=== PATIENT | male | born 1985 | race Caucasian/White ===

== ENCOUNTER → 2019-01-27 | Outpatient (CLI) | payer OTHER, SELFPAY ==
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
== END | disposition home or self-care (01) ==
LOC: RAD 19:51
DX: M99.01 Segmental and somatic dysfunction of cervical region (principal); M99.03 Segmental and somatic dysfunction of lumbar region; M62.830 Muscle spasm of back
CPT/HCPCS: 72050; 72110; 72170

== ENCOUNTER → 2019-01-28 | Outpatient (CLI) | payer OTHER, SELFPAY ==
[2019-01-28 10:28] LABS: Absolute Lymphocyte Count 1.49 X10^3/ul (0.83-4.51); Absolute Neutrophil Count 2.5 X10^3/uL (2.0-7.7); Basophil# 0.04 X10^3/uL; Basophil% 0.9 % (0-1); Eosinophil# 0.14 X10^3/uL; Hematocrit 42.9 % (40-54); Hemoglobin 14.3 g/dl (13.0-16.5); Lymphocyte # 1.49 X10^3/ul (4.0); Lymphocyte % 32.2 % (19-41); Mean Corp Hgb Conc 33.3 g/gl (32-36); Mean Corpuscular Hgb 28.8 pg (27.0-32.0); Mean Corpuscular Volume 86.5 fL (80-94); Mean Platelet Vol. 8.7 fl (6.2-12.0); Monocyte# 0.48 X10^3/uL; Monocyte% 10.4 % (0-10); Neutrophil # 2.47 X10^3/uL (2.7-7.7); Neutrophil % 53.3 % (47-70); POSITIVE COUNT NO; POSITIVE DIFFERENTIAL NO; POSITIVE MORPHOLOGY NO; Platelet Count 242 K/mm3 (150-450); RBC Distribution Width SD 40.9 fl (35.1-43.9); Red Blood Count 4.96 M/mm3 (4.6-6.2); White Blood Count 4.6 K/mm3 (4.4-11.0)
[2019-01-28 10:51] LABS: Anion Gap 8 (5-15); BUN 14 mg/dL (7-18); BUN/Creat Ratio 13.6 RATIO (10-20); Calcium,Total 9.2 mg/dL (8.5-10.1); Chloride 104 mmol/L (98-107); Cholesterol 193 mg/dL (200); Creatinine, Serum 1.03 mg/dL (0.70-1.30); EST Glomerular Filtration Rate 89 mL/min (>60); Est Glom Filt Rate - Afr Amer 108 mL/min (>60); Glucose 100 mg/dL (74-106); High Density Lipoprotein 29 mg/dL; Potassium 4.5 mmol/L (3.5-5.1); Sodium Level 141 mmol/L (136-145); Triglycerides 148 mg/dL; Very Low Density Lipoprotein 30 mg/dL (5-40)
== END | disposition home or self-care (01) ==
LOC: MFPLAB 09:02
PROVIDERS: Family Provider Family Medicine; PCP Family Medicine; Referring Provider Family Medicine; Visit Provider Family Medicine
DX: Z00.00 Encounter for general adult medical examination without abnormal findings (principal); R55 Syncope and collapse
CPT/HCPCS: 36415; 80048; 80061; 85025

== ENCOUNTER → 2020-06-17 | Outpatient (CLI) | payer SELFPAY | END | disposition home or self-care (01) | PROVIDERS: PCP Family Medicine; Visit Provider Family Medicine | DX: Z20.828 Contact with and (suspected) exposure to other viral communicable diseases (principal) | CPT/HCPCS: 87635; U0003 ==

== ENCOUNTER → 2020-08-17 09:09 | Outpatient (CLI) | payer OTHER, SELFPAY ==
[2020-08-17 13:24] LABS: Cholesterol 213 mg/dL (200); High Density Lipoprotein 54 mg/dL; Triglycerides 77 mg/dL; Very Low Density Lipoprotein 15 mg/dL (5-40)
== END ==
PROVIDERS: PCP Family Medicine; Visit Provider Family Medicine
DX: Z00.00 Encounter for general adult medical examination without abnormal findings (principal)
CPT/HCPCS: 36415; 80061

== ENCOUNTER → 2023-04-12 | Outpatient (CLI) | payer BC, SELFPAY ==
[2023-04-12 07:45] LABS: Absolute Lymphocyte Count 2.01 X10^3/uL (0.83-4.51); Basophil# 0.05 X10^3/uL; Basophil% 0.9 % (0-1); Eosinophil# 0.15 X10^3/uL; Eosinophils% 2.7 % (0-5); Hematocrit 45.2 % (40-54); Hemoglobin 14.6 g/dL (13.0-16.5); Lymphocyte # 2.01 X10^3/ul (0.83-4.51); Mean Corp Hgb Conc 32.3 g/dL (32-36); Mean Corpuscular Hgb 29.1 pg (27.0-32.0); Mean Platelet Vol. 9.2 fl (6.2-12.0); Monocyte# 0.36 X10^3/uL; Monocyte% 6.4 % (0-10); NRBC Flagged by Analyzer 0 % (0-5); Neutrophil # 3.01 X10^3/uL (2.7-7.7); Neutrophil % 53.8 % (47-70); Platelet Count 294 K/mm3 (150-450); RBC Distribution Width CV 12.8 % (11.6-14.6); RBC Distribution Width SD 42.5 fl (35.1-43.9); Red Blood Count 5.02 M/mm3 (4.6-6.2); White Blood Count 5.6 K/mm3 (4.4-11.0)
[2023-04-12 08:14] LABS: ALB/GLOB Ratio 1.2 RATIO (0.9-2.4); AST(SGOT) 18 U/L (15-37); Alanine Aminotransfer ALT/SGPT 31 U/L (16-61); Albumin, Serum 4.1 g/dL (3.2-5.0); Alkaline Phosphatase 48 U/L (45-117); Anion Gap 4 (5-15); BUN 20 mg/dL (7-18); BUN/Creat Ratio 19.6 RATIO (10-20); Chloride 105 mmol/L (98-107); Cholesterol 221 mg/dL (200); Creatinine, Serum 1.02 mg/dL (0.70-1.30); EST Glomerular Filtration Rate 88 mL/min (>60); Est Glom Filt Rate - Afr Amer 107 mL/min (>60); Ferritin 184 ng/mL (26-388); Globulin 3.5 g/dL (2.2-4.2); Glucose 83 mg/dL (74-106); High Density Lipoprotein 52 mg/dL; Iron 106 ug/dL (65-175); Potassium 3.9 mmol/L (3.5-5.1); Protein, Total 7.6 g/dL (6.4-8.2); Sodium Level 139 mmol/L (136-145); Triglycerides 61 mg/dL; Very Low Density Lipoprotein 12 mg/dL (5-40); Vitamin B12 600 pg/mL (211-911); Vitamin D,25 Hydroxy 38.9 ng/mL
[2023-04-12 08:17] LABS: Hemoglobin A1c 5.2 % (3.8-5.6)
== END | disposition home or self-care (01) ==
LOC: LAB 06:35
PROVIDERS: PCP Family Medicine; Referring Provider Nurse Practitioner Family; Visit Provider Nurse Practitioner Family
DX: Z00.01 Encounter for general adult medical examination with abnormal findings (principal); R19.7 Diarrhea, unspecified; Z83.3 Family history of diabetes mellitus; R53.83 Other fatigue
CPT/HCPCS: 36415; 80053; 80061; 82306; 82607; 82728; 83036; 83540; 83630; 85025; 87506

== ENCOUNTER → 2023-12-03 | Outpatient (CLI) | payer BC, SELFPAY | END | disposition home or self-care (01) | LOC: BFHLAB 16:22 → LABSPEC 16:23 | PROVIDERS: PCP Nurse Practitioner Family; Visit Provider Nurse Practitioner Family | DX: Z20.9 Contact with and (suspected) exposure to unspecified communicable disease (principal); N41.9 Inflammatory disease of prostate, unspecified | CPT/HCPCS: 87086; 87491; 87591 ==

== ENCOUNTER → 2023-12-11 | Outpatient (CLI) | payer BC, SELFPAY ==
[2023-12-11 12:20] LABS: Erythrocyte Sedimentation Rate 2 mm/hr (0-20)
[2023-12-11 12:26] LABS: Absolute Lymphocyte Count 1.52 X10^3/uL (0.83-4.51); Absolute Neutrophil Count 2.6 X10^3/uL (2.0-7.7); Basophil# 0.04 X10^3/uL; Basophil% 0.9 % (0-1); Eosinophil# 0.12 X10^3/uL; Eosinophils% 2.6 % (0-5); Hematocrit 43.5 % (40-54); Hemoglobin 13.8 g/dL (13.0-16.5); Lymphocyte # 1.52 X10^3/ul (0.83-4.51); Mean Corp Hgb Conc 31.7 g/dL (32-36); Mean Corpuscular Hgb 29.1 pg (27.0-32.0); Mean Corpuscular Volume 91.8 fL (80-94); Mean Platelet Vol. 9.4 fl (6.2-12.0); Monocyte# 0.32 X10^3/uL; NRBC Flagged by Analyzer 0 % (0-5); Neutrophil # 2.59 X10^3/uL (2.7-7.7); Neutrophil % 56.3 % (47-70); Platelet Count 286 K/mm3 (150-450); RBC Distribution Width CV 13.4 % (11.6-14.6); RBC Distribution Width SD 45.5 fl (35.1-43.9); Red Blood Count 4.74 M/mm3 (4.6-6.2); White Blood Count 4.6 K/mm3 (4.4-11.0)
[2023-12-11 12:51] LABS: ALB/GLOB Ratio 1.2 RATIO (0.9-2.4); AST(SGOT) 24 U/L (15-37); Alanine Aminotransfer ALT/SGPT 27 U/L (16-61); Albumin, Serum 4.2 g/dL (3.2-5.0); Alkaline Phosphatase 44 U/L (45-117); Anion Gap 3 (5-15); BUN 21 mg/dL (7-18); BUN/Creat Ratio 18.6 RATIO (10-20); CRP < 2.90 mg/L (0.0-3.0); Calcium,Total 9.2 mg/dL (8.5-10.1); Chloride 108 mmol/L (98-107); Creatinine, Serum 1.13 mg/dL (0.70-1.30); EST Glomerular Filtration Rate 78 mL/min (>60); Est Glom Filt Rate - Afr Amer 94 mL/min (>60); Globulin 3.4 g/dL (2.2-4.2); Glucose 80 mg/dL (74-106); Potassium 4.2 mmol/L (3.5-5.1); Protein, Total 7.6 g/dL (6.4-8.2); Sodium Level 139 mmol/L (136-145)
== END | disposition home or self-care (01) ==
LOC: BFHLAB 08:38
PROVIDERS: PCP Nurse Practitioner Family; Referring Provider Nurse Practitioner Family; Visit Provider Nurse Practitioner Family
DX: R10.31 Right lower quadrant pain (principal); R39.11 Hesitancy of micturition; R19.8 Other specified symptoms and signs involving the digestive system and abdomen; N39.0 Urinary tract infection, site not specified
CPT/HCPCS: 36415; 80053; 85025; 85652; 86140; 87086

== ENCOUNTER → 2023-12-23 | Outpatient (CLI) | payer BC, SELFPAY ==
--- NOTE | 2023-12-23 07:00 | CT_ITS ---
STUDY: CT ABDOMEN AND PELVIS WITHOUT CONTRAST REASON FOR EXAM: Male, 38 years old. RLQ PAIN, URINARY HESITANCY, RECTAL PRESSURE, R/O MASS RADIATION DOSAGE (If Supplied By Facility): CTDIvol = ( 8.17 ) mGy, DLP = ( 477.56 ) mGycm TECHNIQUE: Transaxial images were obtained from the dome of the diaphragm to the symphysis pubis without oral contrast, and without intravenous contrast. Sagittal and coronal images were reconstructed. Individualized dose optimization techniques were used for this CT. COMPARISON: None. FINDINGS: The visualized lung bases are unremarkable. The visualized portions of the heart are within normal limits. Normal liver. Normal gallbladder and extrahepatic biliary system. Normal spleen. Normal pancreas. Normal bilateral adrenal glands. Minimal bilateral hydronephrosis. 2 mm nonobstructive calculus in the mid posterior pole calyx of the left kidney. There is a small hiatal hernia. Normal small intestine. Scattered sigmoid diverticula. The appendix is visualized and appears normal. Normal abdominal aorta. Normal inferior vena cava. Normal retroperitoneum. Normal urinary bladder. There are prostatic calcifications. Small benign-appearing bilateral inguinal lymph nodes. Normal osseous structures. CT/Abdomen/Pelvis without Cont IMPRESSION: Minimal degree of bilateral hydronephrosis. 2 mm nonobstructive calculus in the midpole calyx of the left kidney. Scattered sigmoid diverticula. Prostatic calcifications. Electronically Signed: Chuck Sharma MD at 12:18 EDT ,
== END | disposition home or self-care (01) ==
LOC: CT 06:58
PROVIDERS: PCP Nurse Practitioner Family; Referring Provider Nurse Practitioner Family; Visit Provider Nurse Practitioner Family
DX: R10.31 Right lower quadrant pain (principal); R39.11 Hesitancy of micturition; R19.8 Other specified symptoms and signs involving the digestive system and abdomen
CPT/HCPCS: 74176

== ENCOUNTER 2024-01-26 08:42 | Emergency (ER) | payer BC, SELFPAY ==
[2024-01-26 08:43] VITALS: BP 131/72; PULSE 59; RESP 16; TEMP 36.1; O2SAT 100; BMI 27.6
--- NOTE | 2024-01-26 09:31 | RAD_ITS ---
INDICATION: INJURY EXAMINATION/TECHNIQUE: X-RAY - LEFT XR Hand Min 3 Views 3 VIEWS COMPARISON: No relevant prior comparison study available FINDINGS: SOFT TISSUES: There is soft tissue swelling adjacent to the metacarpals. No radiopaque foreign body. BONES/JOINTS: No acute fracture or subluxation.. Normal alignment. Preservation of the joint space.. No sclerotic or destructive changes observed. RAD/Hand Min 3 Views IMPRESSION: No acute osseous injury. Soft tissue swelling. Electronically Signed: Echo Briggs MD at 9:51 EDT ,
[2024-01-26 11:07] VITALS: BP 125/73; PULSE 60; RESP 16; TEMP 36.6; O2SAT 100
--- NOTE | 2024-01-26 14:50 | EDS_ITS ---
HPI History of Present Illness Chief Complaint: Upper Extremity Injury Narrative Narrative: 38-year-old male presenting with left hand pain and swelling. He states that last week he cut his hand and it was healing well and there was no evidence of infection and then he inadvertently while working yesterday hit his left hand a couple of times and noticed that it swollen today. He is able to move it. He does not have any numbness. He states it does hurt. He has not taken anything for pain. PFSH PFSH Home Medications ?Medication ?Instructions ?Recorded ?Last Taken ?Type hydrocodone-acetaminophen 5-325mg 1 tab PO Q6H PRN pain 3 days #12 01/26/24 Unknown Rx 5mg-325mg TABLETS Allergy/AdvReac Type Severity Reaction Status Date / Time No Known Allergies Allergy Verified 01/26/24 08:44 Social History Smoking Status: Unknown if ever smoked ROS ROS ED Constitutional Constitutional ED: Denies chills, fever(s) or sweats Eyes Eyes: Denies blurry vision or change in vision ENT ENT ED: Denies ear pain or sore throat Cardiovascular Cardiovascular: Denies chest pain, palpitations or racing heartbeat Respiratory/Chest Respiratory/Chest: Denies cough, dyspnea or sputum Gastrointestinal Gastrointestinal: Denies abdominal pain, constipation, diarrhea, nausea or vomiting Genitourinary Genitourinary ED: Denies dysuria, hematuria or urinary frequency Musculoskeletal Musculoskeletal: Reports other Details: Left hand pain and swelling ; Denies arthralgias, myalgias or neck pain Integumentary Denies abscess, Abrasions or rash Neurologic Neurologic: Denies headache(s), paresthesias or weakness Psychiatric Psychiatric: Denies anxiety, depression, suicidal ideation or suicidal thoughts Endocrine Endocrinology: Denies polydipsia or polyuria EXAM Physical Exam Const Vital Signs: 01/26/24 08:43 01/26/24 11:07 Temperature 96.9 F L 98 F Temperature Source Temporal Pulse Rate 59 L 60 Respiratory Rate 16 16 Blood Pressure 131/72 H 125/73 H Blood Pressure Mean 91 90 Pulse Ox 100 100 Oxygen Delivery Method Room Air Positive well nourished General Appearance ED: NAD HEENT Reports moist mucous membranes normocephalic and atraumatic Eyes PERRL Resp normal respiratory effort Cardio regular rate and regular rhythm Extremity Extremity Narrative: Tenderness to palpation over the dorsum of the left hand around the fourth and fifth MCPs. No obvious deformity. There is a superficial abrasion from previous injury. No drainage. No fluctuance. Neurovascular intact brisk cap refill to all 5 fingers. Neuro oriented x3 and CN's II-XII intact bilaterally Sensorium / Orientation: alert Psych mental status grossly normal MDM MDM MDM Narrative Medical decision making narrative: Patient presenting with left hand pain. Although he had a laceration last week he said it was well-healing before he hit his hand yesterday. His hand is swollen but it is soft. I do not believe there is any concern for compartment syndrome here. I do not believe he has an infection. X-rays of the left hand on my interpretation shows no acute fracture or subluxation. Patient requesting something for pain and was given [place] for home. Return precautions were discussed. He was placed in Felix wrap and counseled to elevate the left hand. Impression: 1. Left hand contusion Lab Data Attestation: I reviewed the patient's lab results. Radiography Diagnostic Testing: Clinical Impression(s) from Imaging Studies Hand X-Ray 01/26/24 09:31 IMPRESSION: No acute osseous injury. Soft tissue swelling. Electronically Signed: Echo Briggs MD at 9:51 EDT , Discharge Plan Triage Chief Complaint: Upper Extremity Injury ED Provider: Benson Camacho Dx/Rx/DC Orders Instructions: ED Hand Contusion Prescriptions: New hydrocodone-acetaminophen 5-325 mg tablet 1 tab PO Q6H PRN (Reason: pain) 3 Days Qty: 12 0RF Primary Care Provider: Leslie Tripp Referrals: Leslie Tripp, [employer] ADMINISTRATIVE ASSISTANT-C [Primary Care Provider] - Print Language: Pakistani Disposition Disposition: Home, Self Care Discharge Date/Time: 01/26/24 11:11
== END 2024-01-26 11:11 | disposition home or self-care (01) ==
PROVIDERS: Emergency Provider Student in an Organized Health Care Education/Training Program; PCP Nurse Practitioner Family; Visit Provider Student in an Organized Health Care Education/Training Program
DX: S60.222A Contusion of left hand, initial encounter (principal); W22.8XXA Striking against or struck by other objects, initial encounter; Y99.0 Civilian activity done for income or pay
CPT/HCPCS: 73130; 99282

== ENCOUNTER → 2024-04-22 | Outpatient (CLI) | payer BC, SELFPAY ==
[2024-04-22 16:39] LABS: ALB/GLOB Ratio 1.1 RATIO (0.9-2.4); AST(SGOT) 27 U/L (15-37); Alanine Aminotransfer ALT/SGPT 34 U/L (16-61); Albumin, Serum 4.1 g/dL (3.2-5.0); Alkaline Phosphatase 42 U/L (45-117); Anion Gap 6 (5-15); BUN 18 mg/dL (7-18); BUN/Creat Ratio 18.4 RATIO (10-20); CRP < 2.90 mg/L (0.0-3.0); Calcium,Total 9.4 mg/dL (8.5-10.1); Chloride 105 mmol/L (98-107); Creatinine, Serum 0.98 mg/dL (0.70-1.30); EST Glomerular Filtration Rate 92 mL/min (>60); Est Glom Filt Rate - Afr Amer 111 mL/min (>60); Globulin 3.7 g/dL (2.2-4.2); Glucose 84 mg/dL (74-106); Protein, Total 7.8 g/dL (6.4-8.2); Sodium Level 138 mmol/L (136-145); T4 Total, Thyroxin 5.9 ug/dL (4.5-12.1)
[2024-04-24 12:09] LABS: Endomysial Antibody IgA Negative (Negative); Immunoglobulin A 313 mg/dL (90-386); t-Transglutaminase IgA <2 U/mL (0-3)
== END | disposition home or self-care (01) ==
LOC: MTLAB 11:24
PROVIDERS: PCP Nurse Practitioner Family; Referring Provider Internal Medicine Gastroenterology; Visit Provider Internal Medicine Gastroenterology
DX: R10.9 Unspecified abdominal pain (principal)
CPT/HCPCS: 36415; 80053; 82784; 83516; 84436; 84443; 86140; 86255

== ENCOUNTER → 2024-05-07 | Outpatient (CLI) | payer BC, SELFPAY ==
--- NOTE | 2024-05-07 08:05 | RAD_ITS ---
PROCEDURE: SMALL BOWEL SERIES DATE OF EXAMINATION: May 07, 2024.. INDICATION: Male, 38 years old. Fatigue. Loose stools. PHYSICIAN: Chuck Sharma M.D. FLUOROSCOPY TIME (if supplied): (0:12) minutes/seconds. 22.9 mGy. 8 images were submitted. TECHNIQUE: Radiographic and fluoroscopic images were taken of the small intestine following the ingestion of barium. COMPARISON: None. FINDINGS: A preliminary supine KUB was obtained. There is an unremarkable bowel gas pattern. Fecal material is present throughout the colon. Phleboliths are present within the pelvis. The lung bases are unremarkable. The osseous structures are normal. The patient orally ingested approximately 12 ounces of thin barium Normal visualized fundus, body, and antrum of the stomach. Normal duodenal bulb, C-loop, and proximal jejunum. Normal visualized mucosal folds of the jejunum and ileum. There are no demonstrated dilatations, strictures, or masses of the small intestine. There is no mass displacement of the loops of small intestine. There is a normal motor pattern with barium reaching the colon within approximately 30 minutes. Spot films under fluoroscopic observation demonstrated a normal terminal ileum and ileocecal valve. RAD/Small Bowel Series Only IMPRESSION: Normal small bowel series. Electronically Signed: Chuck Sharma MD at 13:53 EDT ,
== END | disposition home or self-care (01) ==
LOC: RAD 07:55
PROVIDERS: PCP Nurse Practitioner Family; Referring Provider Nurse Practitioner Family; Visit Provider Internal Medicine Gastroenterology
DX: R10.9 Unspecified abdominal pain (principal); R19.7 Diarrhea, unspecified
CPT/HCPCS: 74250

== ENCOUNTER 2025-01-21 16:33 | Emergency (ER) | payer BC, SELFPAY ==
[2025-01-21 16:33] VITALS: BP 139/88; PULSE 83; RESP 16; TEMP 36.2; O2SAT 100; BMI 27.1
--- NOTE | 2025-01-21 16:49 | EX.ED.DYSGE1 ---
HPI History of Present Illness Chief Complaint: Abd Pain Informant: patient Onset/Context/Timing Onset: Weeks (1) Context: Gradual Onset Timing: Continuous Quality: Sharp, cramping Location: Low back pain, pelvis, and testicles, right worse than left Worsened by: Nothing Relieved by: Nothing Narrative Narrative: Patient presents with back, pelvic, and testicular pain that has been getting worse over the past week. Patient describes it as sharp and cramping. Patient states the right side is worse than the left. Patient is not makes it better and nothing makes it worse. Patient admits to some nausea and diarrhea. Patient denies any vomiting. Patient denies any melena or hematochezia. Patient denies any fevers or chills. Patient denies any dysuria or hematuria. PFSH PFSH Medical History Chronic abdominal pain Seasonal allergies Home Medications ?Medication ?Instructions ?Recorded ?Last Taken ?Type fexofenadine 180 mg tablet 180 mg PO Q24H 10/21/24 Unknown History (Rere Allergy) tobramycin 0.3 % eye drops 1 drp ophthalmic (eye) Q2H #5 mL 10/21/24 Unknown Rx Allergy/AdvReac Type Severity Reaction Status Date / Time No Known Allergies Allergy Verified 01/21/25 16:36 Family History (Updated 10/21/24 @ 07:38 by Elaine Monreal) Other Diabetes Hypertension Surgical History History of mandibular surgery Social History Smoking Status: Never smoker alcohol intake: never substance use type: does not use ROS ROS ED Constitutional Constitutional ED: Denies chills or fever(s) Eyes Eyes: Denies blurry vision or change in vision ENT ENT ED: Denies rhinorrhea or sore throat Cardiovascular Cardiovascular: Denies chest pain or palpitations Respiratory/Chest Respiratory/Chest: Denies cough or dyspnea Gastrointestinal Gastrointestinal: Reports diarrhea and nausea; Denies vomiting Genitourinary Genitourinary ED: Denies dysuria or hematuria Musculoskeletal Musculoskeletal: Reports back pain; Denies neck pain Integumentary Denies abscess or rash Neurologic Neurologic: Reports headache(s); Denies weakness Allergic/Immunologic Allergic/Immunologic ED: Denies mouth swelling or urticaria EXAM Physical Exam Const Vital Signs: 01/21/25 16:33 01/21/25 16:33 01/21/25 18:33 Temperature 97.1 F L 97.1 F L Temperature Source Temporal Temporal Pulse Rate 83 83 67 Respiratory Rate 16 16 15 Blood Pressure 139/88 H 139/88 H 123/81 H Blood Pressure Mean 105 105 95 Pulse Ox 100 100 99 Oxygen Delivery Method Room Air Room Air Room Air 01/21/25 20:00 Temperature Temperature Source Pulse Rate 57 L Respiratory Rate 18 Blood Pressure 127/85 H Blood Pressure Mean 99 Pulse Ox 99 Oxygen Delivery Method Room Air Positive well nourished and well developed General Appearance ED: well developed and NAD HEENT Reports moist mucous membranes Neck supple and no JVD Resp normal respiratory effort and clear to auscultation bilaterally Cardio regular rate and regular rhythm GI non-distended Palpation: soft and tender LLQ, RLQ and suprapubic; Negative for guarding or rebound tenderness present Narrative: There is minimal testicular tenderness. There is no tenderness over the epididymis. Cremasteric reflex was normal bilaterally. There is no urethral discharge noted. There are no inguinal hernias palpated. Back/Spine General Back: CVA tenderness right Neuro oriented x3, CN's II-XII intact bilaterally and no sensory deficits noted Sensorium / Orientation: alert Motor Exam: strength 5/5 throughout Psych mental status grossly normal MDM MDM MDM Narrative Medical decision making narrative: Differential diagnosis includes pyelonephritis, urinary tract infection, ureteral calculus, bowel obstruction, perforation, diverticulitis, electrolyte abnormality, and pancreatitis. CBC will be obtained to assess for leukocytosis and anemia. Comprehensive metabolic profile will be obtained to assess for hepatic function, renal function, and electrolyte abnormality. Lipase will be obtained to assess for pancreatitis. Urinalysis will be obtained to assess for urinary tract infection and hematuria. Since CT scan of the abdomen and pelvis will be obtained to assess for ureteral calculus, bowel obstruction, perforation, and pancreatitis. Lab Data Attestation: I reviewed the patient's lab results. Lab results narrative: CBC was reviewed and was within normal limits. Comprehensive Bolick profile was reviewed and was essentially within normal limits. Lipase was reviewed and was normal at 26. Urinalysis was reviewed. Occult blood was 250. There are 25-50 red blood cells. There is no evidence of urinary tract infection. Labs: Laboratory Results - last 24 hr 01/21/25 01/21/25 16:40 18:14 WBC 8.6 RBC 5.19 Hgb 15.3 Hct 45.4 MCV 87.5 MCH 29.5 MCHC 33.7 RDW Std Deviation 41.1 RDW Coeff of Leslie 13.0 Plt Count 280 MPV 9.0 Immature Gran % (Auto) 0.300 Neut % (Auto) 77.3 H Lymph % (Auto) 13.2 L [place] % (Auto) 6.7 Eos % (Auto) 2.0 Baso % (Auto) 0.5 Absolute Neuts (auto) 6.7 Absolute Lymphs (auto) 1.14 Nucleated RBC % 0 Sodium 140 Potassium 4.0 Chloride 104 Carbon Dioxide 25.1 Anion Gap 11 BUN 20 H Creatinine 1.09 Estim Creat Clear Calc 95.81 Est GFR (MDRD) Non-Af 90 BUN/Creatinine Ratio 18.3 Glucose 92 Calcium 9.5 Total Bilirubin 0.83 AST 23 ALT 19 Alkaline Phosphatase 51 Total Protein 7.5 Albumin 4.8 Globulin 2.7 Albumin/Globulin Ratio 1.8 Lipase 26 Urine Color Yellow Urine Clarity Sl. Cloudy Urine pH 6.0 Ur Specific [place] 1.020 Urine Protein 30 H Urine Glucose (UA) Normal Urine Ketones Negative Urine Occult Blood 250 H Urine Nitrite Negative Urine Bilirubin Negative Urine Urobilinogen Normal Ur Leukocyte Esterase Negative Urine RBC 25-50 SEEN Urine WBC 0 SEEN Ur Squamous Epith Cells 0-5 SEEN Urine Bacteria 1+ Urine Mucus 1+ Radiography Diagnostic Testing: Clinical Impression(s) from Imaging Studies Abdomen/Pelvis CT 01/21/25 17:04 IMPRESSION: Fluid-filled loops of bowel which may represent diarrheal illness or enteritis in the correct clinical context. Reading Location: [place] [id number] Testicular Ultrasound 01/21/25 18:43 IMPRESSION: Left varicocele. Moderate right hydrocele with internal debris. Small left simple hydrocele. Left epididymal head cyst. Reading Location: [place] [address] CT scan of the abdomen and pelvis was obtained. There is no ureteral calculus noted. There is no evidence of hydronephrosis. There are pulmonary filled loops of bowel which could represent diarrhea or enteritis. This was interpreted by the radiologist and was also independently reviewed by myself. Because of the hematuria and testicular pain, testicular ultrasound was obtained. There is a left varicocele and simple hydrocele. There is also a small left epididymal cyst. There is a moderate right hydrocele with internal debris. This was interpreted by the radiologist and was also independently reviewed by myself. Treatment and Re-Evaluation :: Patient was given IV fluids, Toradol, and Zofran. Patient was advised of his findings. Patient was instructed to wear tight fitting underwear. Patient was instructed to take Tylenol or ibuprofen as needed for pain. Patient was advised that antibiotics are not necessary at this time. Patient understood and was agreeable with the plan. All questions were answered. Discharge Plan Triage Chief Complaint: Abd Pain ED Provider: Herberth Davies Dx/Rx/DC Orders Clinical Impression: Hydrocele of testis, Abdominal pain Instructions: ED Hydrocele, Type Not Specified Prescriptions: No Action fexofenadine [Rere Allergy] 180 mg tablet 180 mg PO Q24H tobramycin 0.3 % drops 1 drp ophthalmic (eye) Q2H Qty: 5 0RF Rx Instructions: to affected eye while awake first 24 hours, then 3x/day on days 2-5 Primary Care Provider: Sandra Larry NP Referrals: Sandra Larry NP, ENERGY ECONOMIST-C [Primary Care Provider] - 5-7 Days Leslie Tripp NP-C [Non-Staff] - 5-7 Days Print Language: [place] Disposition Disposition: Home, Self Care
--- NOTE | 2025-01-21 17:04 | CT_ITS ---
PROCEDURE: ABDOMEN/PELVIS WITHOUT CONT 01/21/2025 REASON FOR EXAM: ABDOMINAL PAIN TECHNIQUE: Abdomen and pelvis CT without intravenous contrast. Noncontrast technique limits evaluation of the abdominal and pelvic viscera. Coronal and Sagittal reconstruction series were provided. One or more dose reduction techniques were used (e.g., Automated exposure control, adjustment of the mA and/or kV according to patient size, use of iterative reconstruction technique). PATIENT PREPARATION: Per protocol ORAL CONTRAST TYPE: None. AMOUNT: mL COMPARISON: None. FINDINGS: Lung bases: Clear. Liver: Normal size. No obvious mass. Gallbladder: Normal. Spleen: Normal size. Pancreas: Normal size. No surrounding inflammation. Adrenals: Normal. Kidneys: No urolithiasis. No hydronephrosis. Bladder: Normal. Reproductive Organs: Prostatic calcifications. Bowel: Normal caliber large and small bowel. Fluid-filled loops of bowel. Lymph nodes: Unremarkable. Vasculature: The abdominal aorta and IVC contours are normal. Noncontrast technique limits evaluation. Peritoneum / Retroperitoneum: Normal. Bones: Normal. CT/Abdomen/Pelvis without Cont IMPRESSION: Fluid-filled loops of bowel which may represent diarrheal illness or enteritis in the correct clinical context. Reading Location: [place] [id number]
[2025-01-21 17:16] LABS: Absolute Lymphocyte Count 1.14 X10^3/uL (0.83-4.51); Absolute Neutrophil Count 6.7 X10^3/uL (2.0-7.7); Basophil# 0.04 X10^3/uL; Basophil% 0.5 % (0-1); Eosinophil# 0.17 X10^3/uL; Hematocrit 45.4 % (40-54); Hemoglobin 15.3 g/dL (13.0-16.5); Lymphocyte # 1.14 X10^3/ul (0.83-4.51); Lymphocyte % 13.2 % (19-41); Mean Corp Hgb Conc 33.7 g/dL (32-36); Mean Corpuscular Hgb 29.5 pg (27.0-32.0); Mean Corpuscular Volume 87.5 fL (80-94); Monocyte# 0.58 X10^3/uL; Monocyte% 6.7 % (0-10); NRBC Flagged by Analyzer 0 % (0-5); Neutrophil # 6.68 X10^3/uL (2.7-7.7); Neutrophil % 77.3 % (47-70); Platelet Count 280 K/mm3 (150-450); RBC Distribution Width SD 41.1 fl (35.1-43.9); Red Blood Count 5.19 M/mm3 (4.6-6.2); White Blood Count 8.6 K/mm3 (4.4-11.0)
[2025-01-21] MEDS: Ondansetron 4 MG/2 ML Vial IV (17:21)
[2025-01-21] MEDS: 0.9% Normal Saline (1000mL) 1,000 ML 1000 ML IV (17:21)
[2025-01-21] MEDS: Ketorolac 30 MG/ML Syringe IV (17:22)
[2025-01-21 17:55] LABS: ALB/GLOB Ratio 1.8 RATIO (0.9-2.4); AST(SGOT) 23 U/L (<=37); Alanine Aminotransfer ALT/SGPT 19 U/L (<=46); Albumin, Serum 4.8 g/dL (3.5-5.0); Alkaline Phosphatase 51 U/L (40-129); Anion Gap 11 (5-15); BUN 20 mg/dL (4-19); BUN/Creat Ratio 18.3 RATIO (10-20); Calcium,Total 9.5 mg/dL (7.6-11.0); Carbon Dioxide 25.1 mmol/L (21.0-32.0); Chloride 104 mmol/L (98-108); Creatinine, Serum 1.09 mg/dL (0.70-1.20); EST Glomerular Filtration Rate 90 (>60); Estimated Creatinine Clearance 95.81 ml/min (50-250); Globulin 2.7 g/dL (2.2-4.2); Glucose 92 mg/dL (70-99); Lipase 26 U/L (13-75); Protein, Total 7.5 g/dL (5.9-8.4); Sodium Level 140 mmol/L (133-145); Total Bilirubin 0.83 mg/dL (0.00-1.30)
[2025-01-21 18:23] LABS: Color, Urine Yellow (Yellow); Glucose, Dipstick Normal (Normal); Ketone-Dipstick Negative (Negative); Leukocyte Esterase-Dipstick Negative /ul (Negative); Nitrite-Dipstick Negative (Negative); Occult Blood-Urine 250 /ul (Negative); Protein-Dipstick 30 mg/dl (Negative); Urine Bilirubin Dipstick Negative (Negative); Urine Clarity Sl. Cloudy (Clear); Urine Urobilinogen Normal (Normal)
[2025-01-21 18:29] LABS: Bacteria 1+ /hpf (None Seen); Mucous, Urine 1+ /hpf (<or=2+); Red Blood Cells-Urine 25-50 SEEN /hpf (0-5); Squamous Epithelial Cells - UA 0-5 SEEN /hpf (0-5); White Blood Cells 0 SEEN /hpf (0-5)
[2025-01-21 18:33] VITALS: BP 123/81; PULSE 67; RESP 15; O2SAT 99
--- NOTE | 2025-01-21 18:43 | US_ITS ---
PROCEDURE: TESTICULAR WITH ARTERIAL FLOW 01/21/2025 REASON FOR EXAM: PAIN TECHNIQUE: Portillo scale imaging of the scrotal contents. COMPARISON: None. FINDINGS: RIGHT testicle: 4.2 x 3.2 x 2.3 cm Homogeneous echotexture. No intratesticular mass. Right epididymis: Unremarkable. LEFT testicle: 4.1 x 2.9 x 1.9 cm Homogeneous echotexture. No intratesticular mass. Left epididymis: 3 mm epididymal head cyst. Other findings: Moderate right hydrocele with internal debris. Small left hydrocele. Dilation of the left pampiniform plexus veins compatible with a varicocele. US/Testicular with Arterial Flow IMPRESSION: Left varicocele. Moderate right hydrocele with internal debris. Small left simple hydrocele. Left epididymal head cyst. Reading Location: [place] [address]
[2025-01-21 20:00] VITALS: BP 127/85; PULSE 57; RESP 18; O2SAT 99
[2025-01-21 21:02] VITALS: BP 128/70; PULSE 71; RESP 18; TEMP 36.8; O2SAT 100
== END 2025-01-21 21:02 | disposition home or self-care (01) ==
PROVIDERS: Emergency Provider Emergency Medicine; PCP Nurse Practitioner; Visit Provider Emergency Medicine
DX: N43.3 Hydrocele, unspecified (principal); R10.9 Unspecified abdominal pain; N50.811 Right testicular pain; N50.812 Left testicular pain; R51.9 Headache, unspecified
CPT/HCPCS: 74176; 76870; 80053; 81001; 83690; 85025; 93976; 96361; 96374; 96375; 99282; A4216; J2405

== ENCOUNTER → 2025-01-25 | Outpatient (CLI) | payer BC, SELFPAY | END | disposition home or self-care (01) | LOC: LABSPEC 22:22 | PROVIDERS: PCP Nurse Practitioner; Referring Provider Nurse Practitioner; Visit Provider Nurse Practitioner | DX: R10.9 Unspecified abdominal pain (principal) | CPT/HCPCS: 87086 ==